=== PATIENT | male | born 2000 | race Two or more races ===

== ENCOUNTER 2023-09-08 12:02 | Emergency (ER) | payer BC, MEDICAID ==
[~2023-09-08] VITALS: Ht 175.3 cm; Wt 82.0 kg
[2023-09-08] MEDS: CEPHALEXIN 250 MG CAP PO ONE (13:50)
[2023-09-08] MEDS: ACETAMINOPHEN 500 MG TAB PO ONE (13:50)
[2023-09-08] MEDS: LIDOCAINE 1% HCL (LOCAL ANESTH.) INJ 20ML MDV ONE (15:46)
[2023-09-08 16:05] VITALS: BP 122/57; PULSE 83; RESP 18; TEMP 98.1; O2SAT 100
[2023-09-08] MEDS ORDERED: ACET500T58 PO (16:16)
[2023-09-08] MEDS ORDERED: CEPH500T PO (16:16)
== END 2023-09-08 16:23 | disposition home or self-care (01) ==
LOC: ER 12:02 → EDBD 12:02 → ER 16:23
DX: S61.412A Laceration without foreign body of left hand, initial encounter (principal); S61.411A Laceration without foreign body of right hand, initial encounter; W22.8XXA Striking against or struck by other objects, initial encounter; Y93.89 Activity, other specified; Y92.89 Other specified places as the place of occurrence of the external cause; Y99.8 Other external cause status
CPT/HCPCS: 12002; 73130; 99152; J2001

== ENCOUNTER → 2024-12-07 | Outpatient (CLI) | payer BC, MEDICAID ==
[~2024-12-07] MED LIST: ACET500T58 PO; CEPH500T PO
[2024-12-08 11:07] LABS: Anti-Nuclear Antibody Direct Negative (Negative); Anti-dsDNA Antibody <1 IU/mL (0-9); Antiscleroderma-70 Antibody <0.2 AI (0.0-0.9); Sjogren's Anti-SS-A Antibody <0.2 AI (0.0-0.9); Sjogren's Anti-SS-B Antibody <0.2 AI (0.0-0.9)
== END | disposition home or self-care (01) ==
LOC: LAB 10:32
PROVIDERS: ATTEND Internal Medicine
DX: M54.9 Dorsalgia, unspecified (principal); Z88.9 Allergy status to unspecified drugs, medicaments and biological substances
CPT/HCPCS: 86003; 86160; 86225; 86235; 86376; 86431

== ENCOUNTER 2025-01-06 21:58 | Emergency (ER) | payer BC, MEDICAID ==
[~2025-01-06] VITALS: Ht 175.3 cm; Wt 88.0 kg
[2025-01-07 00:04] LABS: Hematocrit 47.4 % (41.0-53.0); Hemoglobin 15.9 g/dL (13.5-17.5); Mean Corpuscular Hemoglobin 27.2 pg (28.0-32.0); Mean Corpuscular Volume 81.1 fL (80.0-100.0); Nucleated Red Blood Cells % 0.1 %
[2025-01-07 00:13] LABS: Chloride 105 mmol/L (98-107); Sodium 139 mmol/L (136-145)
[2025-01-07 00:14] LABS: Anion Gap 10 (5-15); Calcium 9.5 mg/dL (8.7-10.4); Carbon Dioxide 24 mmol/L (20-31)
[2025-01-07 00:19] LABS: BUN/Creatinine Ratio 10.6 (10.0-20.0); Blood Urea Nitrogen 14 mg/dL (9-23)
[2025-01-07 00:52] LABS: Glucose 121 mg/dL (74-106); Potassium 3.4 mmol/L (3.5-5.1)
[2025-01-07] MEDS ORDERED: TRAZ-181 PO (01:23)
--- NOTE | 2025-01-07 01:23 | ED.PDOC ---
History of Present Illness HPI Comments This patient is an otherwise healthy 24-year-old male who arrives the ED today for evaluation of a general weakness event that occurred at work. Patient states he has been working excessively lately and today, found himself lightheaded and nearly passed out. Patient's fell employees advised him to come to the hospital for evaluation. Patient denies any fever nausea or vomiting. Patient does not look toxic at time of evaluation. Vital signs were stable. Additionally, patient complains of insomnia for the past four nights. Chief Complaint: Syncope Time Seen by MD: 23:22 Reviewed Notes: Nurses Notes Allergies: Coded Allergies: Ziprasidone (Verified Allergy, Unknown, 01/06/25) Home Meds Active Scripts Acetaminophen (Acetaminophen) 500 Mg Tab, 500 MG PO TIDPRN PRN for 10 Days, #30 TAB Prov:MARITZA RIGGS DO 09/08/23 Cephalexin Monohydrate (Cephalexin) 500 Mg Tab, 1 TAB PO QID for 10 Days, #40 TAB Prov:MARITZA RIGGS DO 09/08/23 Information Source: Patient Mode of Arrival: Ambulatory Severity: Mild Timing: Hours Duration: Minutes Prehospital treatment: None Past Medical History PAST MEDICAL HISTORY: Denies Surgical History: Denies all surgeries Family History Family History: Unknown Social History Smoker: Non-Smoker Alcohol: Denies ETOH Use Drugs: Denies Drug Use Lives In: Home Constitutional: reports: weakness; denies: chills, diaphoresis, fatigue, fever, malaise, sweats, others EENTM: denies: blurred vision, double vision, ear bleeding, ear discharge, ear drainage, ear pain, ear ringing, eye pain, eye redness, hearing loss, mouth pain, mouth swelling, nasal discharge, nose bleeding, nose congestion, nose pain, photophobia, tearing, throat pain, throat swelling, voice changes, others Respiratory: denies: cough, hemoptysis, orthopnea, SOB at rest, shortness of b reath, SOB with excertion, stridor, wheezing, others Cardiovascular: denies: chest pain, dizzy spells, diaphoresis, Dyspnea on exertion, edema, irregular heart beat, left arm pain, lightheadedness, palpitations, PND, syncope, others Gastrointestinal: denies: abdomen distended, abdominal pain, blood streaked bowels, constipated, diarrhea, dysphagia, difficulty swallowing, hematemesis, melena, nausea, poor appetite, poor fluid intake, rectal bleeding, rectal pain, vomiting, others Genitourinary: denies: burning, dysuria, flank pain, frequency, hematuria, incontinence, penile discharge, penile sore, pain, testicle pain, testicle swelling, urgency, others Neurological: reports: others (Near syncopal event); denies: dizziness, fainting, headache, left sided numbness, left sided weakness, numbness, paresthesia, pre-existing deficit, right sided numbness, right sided weakness, seizure, speech problems, tingling, tremors, weakness Musculoskeletal: denies: back pain, gout, joint pain, joint swelling, muscle pain, muscle stiffness, neck pain, others Integumetry: denies: bruises, change in color, change in hair/nails, dryness, laceration, lesions, lumps, rash, wounds, others Allergic/Immunocompromised: denies: Difficulty Healing, Frequent Infections, Hives, Itching, others Hematologic/Lymphatic: denies: anemia, blood clots, easy bleeding, easy bruising, swollen glands, others Endocrine: denies: excessive hunger, excessive sweating, excessive thirst, excessive urination, flushing, intolerance to cold, intolerance to heat, unexplained weight gain, unexplained weight loss, others Psychiatric: denies: anxiety, bipolar disorder, depression, hopeless, panic disorder, schizophrenia, sleepless, suicidal, others Physical Exam General Appearance: No Apparent Distress (Patient was in no distress at time of evaluation.), Normal HEENT: Normal ENT Inspection, Pharynx Normal, TMs Normal Neck: Full Range of Motion, Non-Tender, Normal, Normal Inspection Respiratory: Chest Non-Tender, Lungs Clear, No Accessory Muscle Use, No Respiratory Distress, Normal Breath Sounds Cardiovascular: No Edema, No JVD, No Murmur, No Gallop, Normal Peripheral Pulses, Regular Rate/Rhythm Breast Exam: Deferred Gastrointestinal: No Organomegaly, Non Tender, No Pulsatile Mass, Normal Bowel Sounds, Soft Genitalia: Deferred Pelvic: Deferred Rectal: Deferred Extremities: No calf tenderness, Normal capillary refill, Normal inspection, Normal range of motion, Non-tender, No pedal edema Neurologic: Alert, No Motor Deficits, Normal Affect, Normal Mood, No Sensory Deficits Cerebellar Function: Normal Reflexes: Normal Skin: Dry, Normal Color, Warm Lymphatic: No Adenopathy Was a procedure done? Was a procedure done?: No Differential Dx Considerations may include: Sepsis, electrolyte abnormality, insomnia, viral illness, exhaustion X-Ray, Labs, Meds, VS Vital Signs Date Time Temp Pulse Resp B/P (MAP) Pulse Ox O2 Delivery O2 Flow Rate FiO2 01/06/25 22:01 98.3 106 17 129/87 96 98.3 Lab Test 01/06/25 23:41 Range/Units White Blood Count 13.0 H 4.4-10.8 10^3/uL Red Blood Count 5.84 4.5-5.90 10^6/uL Hemoglobin 15.9 13.5-17.5 g/dL Hematocrit 47.4 41.0-53.0 % Mean Corpuscular Volume 81.1 80.0-100.0 fL Mean Corpuscular Hemoglobin 27.2 L 28.0-32.0 pg Mean Corpuscular Hemoglobin Concent 33.6 32.0-36.0 g/dL Red Cell Distribution Width 12.7 11.8-14.3 % Platelet Count 219 140-450 10^3/uL Mean Platelet Volume 9.7 6.9-10.8 fL Neutrophils (%) (Auto) 68.6 37.0-80.0 % Lymphocytes (%) (Auto) 17.7 10.0-50.0 % Monocytes (%) (Auto) 10.6 0.0-12.0 % Eosinophils (%) (Auto) 2.7 0.0-7.0 % Basophils (%) (Auto) 0.4 0.0-2.0 % Neutrophils # (Auto) 8.9 H 1.6-8.6 10 ^3/uL Lymphocytes # (Auto) 2.3 0.4-5.4 10 ^3/uL Monocytes # (Auto) 1.4 H 0-1.3 10 ^3/uL Eosinophils # (Auto) 0.3 0-0.8 10 ^3/uL Basophils # (Auto) 0.1 0-0.2 10 ^3/uL Nucleated Red Blood Cells 0.1 % Sodium Level 139 136-145 mmol/L Potassium Level 3.4 L 3.5-5.1 mmol/L Chloride Level 105 98-107 mmol/L Carbon Dioxide Level 24 20-31 mmol/L Anion Gap 10 5-15 Blood Urea Nitrogen 14 9-23 mg/dL Creatinine 1.32 H 0.700-1.30 mg/dL Glomerular Filtration Rate Calc 77 >90 mL/min BUN/Creatinine Ratio 10.6 10.0-20.0 Serum Glucose 121 H 74-106 mg/dL Calcium Level 9.5 8.7-10.4 mg/dL X-Ray, Labs, Meds, VS Comment All studies performed in the ED were evaluated by me personally. Serum studies were unremarkable for any systemic concerns. Advised patient that he needs to work a little less and try to re claim some sleep as well as good hydration and healthy nutrition. Time of 1ST Reevaluation: :20 Reevaluation 1ST: Unchanged Consultation: PCP Patient Education/Counseling: Diagnosis, Treatment Family Education/Counseling: Diagnosis, Treatment SEPSIS Sepsis Screen Date sepsis recognized/suspect: Jan 06, 2025 Time Sepsis recognized/suspect: 2203 Recent Procedure: No On Antibiotic Therapy: No Respiratory Rate >20: No Heart Rate >90: No Temp<36 C (96.8 F) or >38.3 C: No SBP <90 or MAP <65 mmHG: No New Acute Mental Status Change: No Is the patient on CPAP, BIPAP,: No Vital Signs Date Time Temp Pulse Resp B/P (MAP) Pulse Ox O2 Delivery O2 Flow Rate FiO2 01/06/25 22:01 98.3 106 17 129/87 96 98.3 Laboratory Tests Test 01/06/25 23:41 White Blood Count 13.0 10^3/uL (4.4-10.8) H Departure 1 Departure Time of Disposition: : Impression: Primary Impression: Exhaustion Additional Impression: Insomnia Disposition: 01 HOME / SELF CARE / HOMELESS Condition: Stable Additional Instructions: Advised patient utilize medication as needed for insomnia concerns. Patient should try to get some good rest, increase hydration and improve nutrition. e-Prescriptions Trazodone HCl (Trazodone Hydrochloride) 50 Mg Tab 50 MG PO QHSP PRN, #5 TAB Prov: NIYAH BONILLA PAC 01/07/25 Discharged With: Self, Friend Critical Care Note Critical Care Time?: No Stability Stability form required: No Heart Score Heart Score: Heart Score Response (Comments) Value History N/A 0 EKG N/A 0 Age N/A 0 Risk Factors N/A 0 Troponin N/A 0 Total 0 NIYAH BONILLA [facility] Jan 07, 2025 01:23
[2025-01-07 02:09] VITALS: PULSE 84; RESP 19; O2SAT 95
[2025-01-07 02:19] VITALS: BP 128/68; PULSE 89; RESP 18; TEMP 98; O2SAT 98
== END 2025-01-07 02:28 | disposition home or self-care (01) ==
LOC: ER 21:58
DX: G47.00 Insomnia, unspecified (principal); R53.83 Other fatigue; Z88.1 Allergy status to other antibiotic agents
CPT/HCPCS: 36415; 80048; 82947; 85025